=== PATIENT | male | born 1945 | race Caucasian/White ===

== ENCOUNTER → 2020-08-05 12:06 | Outpatient (CLI) | payer MEDICARE, OTHER, SELFPAY ==
[2020-08-06 12:57] LABS: COVID19 Sendout Not Detected
== END ==
PROVIDERS: Visit Provider Physician Assistant
DX: Z01.812 Encounter for preprocedural laboratory examination (principal)
CPT/HCPCS: 87635

== ENCOUNTER 2020-08-08 08:34 | Day surgery (SDC) | payer MEDICARE, OTHER, SELFPAY ==
[2020-08-08] VITALS (7 sets, daily range): BP systolic 104–136; BP diastolic 63–88; PULSE 61–71; RESP 14–18; TEMP 36.3–36.9; O2SAT 93–98; BMI 29.2
[2020-08-08] MEDS: LACTATED RINGERS 1,000 ML 200 ML IV (09:24)
--- NOTE | 2020-08-08 09:56 | PM.HP.1 ---
History of Present Illness History of Present Illness Date Patient Seen: 08/08/20 Time Patient Seen: 09:56 Chief complaint: SCREENING COLONOSCOPY Narrative: The patient is a gentleman here for screening colonoscopy. His last exam was about 6 years ago. He has had polyps removed in the past. Patient History Medical History (Updated 08/08/20 @ 09:56 by Pablo Smith MD) Hypertension (Acute) Surgical History (Updated 08/08/20 @ 09:57 by Pablo Smith MD) H/O bilateral inguinal hernia repair (Acute) Family & Social History Social History: household members spouse Tobacco & Substance use: Smoking Status Never smoker alcohol intake frequency a few times a week Substance Use Type does not use Meds Home Medications and Allergies Allergies Allergy/AdvReac Type Severity Reaction Status Date / Time No Known Drug Allergies Allergy Unverified 08/05/20 11:36 Review of Systems Review of Systems Narrative: Suffers from chronic constipation. Uses a small amount of Mag citrate periodically. ROS: Yes All systems reviewed with the patient and are negative except as otherwise documented Exam Vital Signs (past 8 hours): - 08/08/20 09:20 Temperature 98.3 F Pulse Rate 62 Respiratory Rate 16 Blood Pressure 136/88 Pulse Oximetry 98 Oxygen Delivery Method Room Air Narrative Exam Narrative: Pleasant cooperative patient no apparent distress. Lungs are clear to auscultation. No rales or rhonchi. Heart regular rate and rhythm no murmur gallop. Abdomen is soft nontender without mass. No obvious hernias. Patient is alert and oriented x3. Assessment & Plan Assessment & Plan narrative: The patient for a screening colonoscopy. I have discussed the procedure with them. Risks of bleeding, perforation which would necessitate major operation, failure to find remove all lesions, the potential tattoo were all discussed. All questions were answered. They wished to proceed.
--- NOTE | 2020-08-08 09:58 | PM.PREOP ---
Pre-operative Note COVID-19 COVID-19 status: Negative Result date/Date tested (Pos, Neg/Pending): 08/05/20 Interval Note History & Physical reviewed/Exam performed by Physician: Yes Changes to H&P: No
[2020-08-08] MEDS: fentaNYL 250 MCG/5 ML INJ IV (10:36)
[2020-08-08] MEDS: MIDAZOLAM 5 MG/5 ML VIAL IV (10:47)
--- NOTE | 2020-08-08 10:52 | P.OP.ENDO_ITS ---
Operative Date/Time/Diagnoses Date of procedure: 08/08/20 Time of procedure: 10:52 Pre-op diagnosis: Screening exam. Last exam 6 years ago. Post-op diagnosis: same Procedure & Clinicians Study performed: Colonoscopy Same procedure as scheduled: Yes Indications: Screening. History of polyps. Surgeon: Pablo Smith Procedure Notes SCOAP/Timeout: Performed Procedure in detail: The patient was placed in the left lateral decubitus position and underwent IV sedation directed by the surgeon consisting of fentanyl and Versed. Digital exam was remarkable for a small prostate.. The scope was inserted and advanced through the rectum into the sigmoid, descending, transverse, and ascending colon. There is very difficult to make my way around this patient's colon. It was elongated and tortuous. Applied pressure, inse rted a stiffener reposition the patient.. The cecum was reached identified by the ileocecal valve. I do not see the area around the appendix. At this point I had gone in an out of the colon multiple times in order to get this far and was at the hub of my scope. The scope was gradually brought out. No Polyps were found. The scope ultimately was retroflexed in the rectum. The appearance was normal. The scope was removed and the patient tolerated the procedure well. Prep was very good. Scope withdrawal time: 5 minutes Sedation minutes: 27 Specimen(s): none sent Complications: none Post-procedure Recommendations: Colonscopy in 5 years Follow up: as needed Disposition: PACU
--- NOTE | 2020-08-08 11:47 | SUR.PHASEII ---
1130-Pt wanting to go home, up and ambulating gait steady, all dc instructions given and pt verbalizes understanding, getting dressed now after iv dcd site clear.
--- NOTE | 2020-08-08 11:48 | SUR.PHASEII ---
1145-Pt dcd via wc in stable codntiion with no c/o
== END 2020-08-08 11:45 | disposition home or self-care (01) ==
PROVIDERS: PCP Internal Medicine; Referring Provider Specialist; Visit Provider Specialist
PROC: 0DJD8ZZ Inspection of Lower Intestinal Tract, Via Natural or Artificial Opening Endoscopic (ICD-10-PCS; CPT 45378; principal; 2020-08-08 10:00)
DX: Z12.11 Encounter for screening for malignant neoplasm of colon (principal); Z86.010 Personal history of colon polyps; I10 Essential (primary) hypertension
CPT/HCPCS: G0105; 99152; 99153; J2250; J3010

== ENCOUNTER 2025-03-11 08:13 | Day surgery (SDC) | payer MEDICARE, OTHER, SELFPAY ==
[2025-03-11 08:39] VITALS: BP 184/84; PULSE 53; RESP 17; TEMP 36.3; O2SAT 99
[2025-03-11] MEDS: LACTATED RINGERS 1,000 ML 150 ML IV (08:48)
--- NOTE | 2025-03-11 09:12 | PM.HP.IH.1 ---
History of Present Illness History of Present Illness Date Patient Seen: 03/11/25 Time Patient Seen: 09:12 Chief complaint: Screening Colonoscopy Narrative: Kendall Azul is a 79-year-old man here for a colonoscopy. His last colonoscopy was with Dr. Smith in 2019 and was normal. He has had several other colonoscopies before that. No family history of colon cancer. [facility] Medical History (Updated 03/11/25 @ 09:13 by Kendall Sapp MD) Hypertension Surgical History (Updated 08/08/20 @ 09:57 by Pablo Smith MD) H/O bilateral inguinal hernia repair Social History household members: spouse Smoking Status: Former smoker alcohol intake: current Meds Home Medications and Allergies Home Medications Medication Instructions Recorded Confirmed Type simvastatin 40 mg tablet 40 mg PO DAILY 08/08/20 03/11/25 History zolpidem 10 mg tablet 10 mg PO ONCE PM PRN Sleep 03/11/25 03/11/25 History Allergies Allergy/AdvReac Type Severity Reaction Status Date / Time No Known Drug Allergies Allergy Verified 03/11/25 08:49 Exam Vital Signs (past 8 hours): - 03/11/25 08:39 Temperature 97.3 F L Pulse Rate 53 L Respiratory Rate 17 Blood Pressure 184/84 H Pulse Oximetry 99 Oxygen Delivery Method Room Air Oxygen Delivery Method Room Air Const General: healthy appearing Resp Effort & Inspection: normal respiratory effort Assessment & Plan Assessment and plan (1) Colon cancer screening: Status: Acute Plan Colonoscopy Time-Based Coding :: [TOTAL MINUTES] spent with patient and on the chart (including review of chart, obtaining history, exam, reviewing outside data, placing orders, documenting exam and treatment plan, and counseling patient) on [DATE]. [employer] Preventive Medicine Officer Document charge(s): No
--- NOTE | 2025-03-11 09:26 | PM.OP.COLON ---
Operative Date/Time/Diagnoses Date of procedure: 03/11/25 Time of procedure: 09:26 Pre-op diagnosis: Colon cancer screening Post-op diagnosis: same Procedure & Clinicians Study performed: Colonoscopy Same procedure as scheduled: Yes Surgeon: Kendall Sapp Procedure Notes Procedure in detail: Surgeon: Kendall Sapp MD Anesthesia: Neal Acuna D.O. Procedure: The patient was brought to the endoscopy suite, placed in left lateral decubitus position. The patient was connected to monitoring devices. A time-out was performed. Sedation was administered. Once the patient was adequately sedated, a digital rectal exam was performed and was normal. The scope was then inserted into the rectum. The prep was inadequate to safely advance. The procedure was terminated. The patient was awakened and brought to recovery. Scope withdrawal time: Not applicable Sedation time: Minutes EBL: 0 Findings: Incomplete prep Post-procedure Disposition: PACU
[2025-03-11 09:30] VITALS: BP 142/82; PULSE 47; RESP 16; TEMP 36.2; O2SAT 98
[2025-03-11 09:40] VITALS: BP 140/70; PULSE 66; RESP 16; TEMP 36.2; O2SAT 98
== END 2025-03-11 09:56 | disposition home or self-care (01) ==
PROVIDERS: PCP Internal Medicine; Referring Provider Surgery; Visit Provider Surgery
PROC: 0DJD8ZZ Inspection of Lower Intestinal Tract, Via Natural or Artificial Opening Endoscopic (ICD-10-PCS; CPT 45378; principal; 2025-03-11 09:45)
DX: Z12.11 Encounter for screening for malignant neoplasm of colon (principal); Z53.09 Procedure and treatment not carried out because of other contraindication
CPT/HCPCS: G0121; J2704

== ENCOUNTER 2025-05-20 07:21 | Day surgery (SDC) | payer MEDICARE, OTHER, SELFPAY ==
[2025-05-20] MEDS: LACTATED RINGERS 1,000 ML 42 ML IV (07:58)
[2025-05-20 08:04] VITALS: BP 174/78; PULSE 50; RESP 16; TEMP 36.3
--- NOTE | 2025-05-20 08:40 | PM.HP.IH.1 ---
History of Present Illness History of Present Illness Date Patient Seen: 05/20/25 Time Patient Seen: 08:40 Chief complaint: Screening Colonoscopy Narrative: Kendall is a 79-year-old man here for a colonoscopy. See the prior office note for details. He has a remote history of polyps. [facility] Medical History (Updated 04/11/25 @ 11:04 by Kendall Sapp MD) Hypertension Surgical History (Updated 08/08/20 @ 09:57 by Pablo Smith MD) H/O bilateral inguinal hernia repair Social History household members: spouse alcohol intake: current Meds Home Medications and Allergies Home Medications ?Medication ?Instructions ?Recorded ?Confirmed ?Type simvastatin 40 mg tablet 40 mg PO DAILY 08/08/20 05/20/25 History zolpidem 10 mg tablet 10 mg PO ONCE PM PRN Sleep 03/11/25 05/20/25 History peg 3350-electrolytes 236 240 ml PO Q10M #4,000 mL 04/21/25 Rx gram-22.74 gram-6.74 gram-5.86 gram solution (Golytely) Allergies Allergy/AdvReac Type Severity Reaction Status Date / Time No Known Drug Allergies Allergy Verified 05/20/25 08:16 Exam Vital Signs (past 8 hours): - 05/20/25 08:04 Temperature 97.3 F L Pulse Rate 50 L Respiratory Rate 16 Blood Pressure 174/78 H Oxygen Delivery Method Room Air Oxygen Delivery Method Room Air Const General: healthy appearing Assessment & Plan Assessment and plan (1) Colon cancer screening: Status: Acute Plan Colonoscopy Time-Based Coding :: [TOTAL MINUTES] spent with patient and on the chart (including review of chart, obtaining history, exam, reviewing outside data, placing orders, documenting exam and treatment plan, and counseling patient) on [DATE]. PROFEE Medical Records Auditor Document charge(s): No
[2025-05-20 09:21] VITALS: BP 157/71; PULSE 50; RESP 18; TEMP 36.4; O2SAT 97
--- NOTE | 2025-05-20 09:25 | PM.OP.EC ---
Operative Date/Time/Diagnoses Date of procedure: 05/20/25 Time of procedure: 09:26 Pre-op diagnosis: Colon cancer screening Post-op diagnosis: same Procedure & Clinicians Study performed: Colonoscopy Same procedure(s) as scheduled: Yes Surgeon: Kendall Sapp Anesthesia Type: MAC +/- Procedure Notes Procedure in detail: Surgeon: Kendall Sapp MD Anesthesia: Alison Metz CRNA Procedure: The patient was brought to the endoscopy suite, placed in left lateral decubitus position. The patient was connected to monitoring devices. A time-out was performed. Sedation was administered. Once the patient was adequately sedated, a digital rectal exam was performed and was normal. The scope was then inserted and advanced to the cecum where the appendiceal orifice was identified and photographed. The scope was then slowly withdrawn over greater than 6 minutes. The mucosa was thoroughly inspected. No abnormalities were found. The scope was retroflexed in the rectum. The scope was straightened and removed. The patient was awakened and brought to recovery. Scope withdrawal time: 15 minutes Sedation time: 29 minutes EBL: 0 Findings: Normal colon Post-procedure Disposition: PACU
[2025-05-20 09:26] VITALS: BP 159/77; PULSE 55; RESP 16; O2SAT 98
[2025-05-20 09:31] VITALS: BP 159/71; PULSE 49; RESP 16; O2SAT 98
[2025-05-20 09:36] VITALS: BP 139/63; PULSE 48; RESP 16; O2SAT 97
[2025-05-20 09:40] VITALS: BP 141/77; PULSE 50; RESP 16; TEMP 36.4; O2SAT 97
== END 2025-05-20 09:50 | disposition home or self-care (01) ==
PROVIDERS: PCP Internal Medicine; Referring Provider Internal Medicine; Visit Provider Surgery
PROC: 0DJD8ZZ Inspection of Lower Intestinal Tract, Via Natural or Artificial Opening Endoscopic (ICD-10-PCS; CPT 45378; principal; 2025-05-20 08:45)
DX: Z12.11 Encounter for screening for malignant neoplasm of colon (principal); Z86.0100 Personal history of colon polyps, unspecified
CPT/HCPCS: G0105; J2704